=== PATIENT | male | born 1985 | race Caucasian/White ===

== ENCOUNTER 2017-02-26 10:19 | Emergency (ER) | payer SELFPAY ==
[~2017-02-26] VITALS: Wt 78.0 kg
== END 2017-02-26 13:00 | disposition left against medical advice (07) ==
LOC: FTE 10:19
DX: Z53.21 Procedure and treatment not carried out due to patient leaving prior to being seen by health care provider (principal)

== ENCOUNTER 2017-03-06 14:52 | Emergency (ER) | payer SELFPAY ==
[~2017-03-06] VITALS: Ht 175.3 cm; Wt 70.0 kg
[2017-03-06 14:55] VITALS: Ht 175.3 cm; Wt 70.0 kg
--- NOTE | 2017-03-06 15:42 | ERD ---
ER Documentation Chief Complaint Date/Time DATE: 03/06/17 TIME: 15:40 Chief Complaint back px,reports thc use, req'd sw d/t lost hm address, denies si/dto HPI Patient is a 31-year-old male presents with back pain. He came in to see social security specialist because he had lost his home address. The patient was going to come in to the emergency department and be seen but then decided to leave. I went out to the waiting room to see him and said traci and asked him if he would like to be seen at this time and he said no. He decided to elope from the emergency department at that time. ROS All systems reviewed and are negative except as per history of present illness. PMhx/Soc Medical and Surgical Hx: Unable to obtain FmHx Unable to obtain Physical Exam Vitals Vital Signs Date Time Temp Pulse Resp B/P Pulse Ox O2 Delivery O2 Flow Rate FiO2 03/06/17 14:55 98.5 89 18 110/59 97 Physical Exam Const: No acute distress Neur: Awake and alert, walking without difficulty with a normal gait Procedures/MDM Patient is a 31-year-old male who presents with back pain and wanted to see a social security specialist. After seeing him in the waiting room the patient decided to elope did not want to be seen any longer. He does not appear to have any signs of serious back pain causing any ambulatory dysfunction. At this point I doubt epidural abscess, epidural hematoma, or cauda equina syndrome. The patient went to follow-up with a primary doctor. He can return for any worsening symptoms. He did elope prior to receiving a full evaluation. Departure Diagnosis: Primary Impression: Back pain Back pain location: low back pain Chronicity: acute Back pain laterality: unspecified Sciatica presence: unspecified whether sciatica present Qualified Code: M54.5 - Acute low back pain, unspecified back pain laterality, with sciatica presence unspecified Condition: Fair Patient Instructions: Depression Referrals: [facility] YOU HAVE RECEIVED A MEDICAL SCREENING EXAM AND THE RESULTS INDICATE THAT YOU DO NOT HAVE A CONDITION THAT REQUIRES URGENT TREATMENT IN THE EMERGENCY DEPARTMENT. FURTHER EVALUATION AND TREATMENT OF YOUR CONDITION CAN WAIT UNTIL YOU ARE SEEN IN YOUR DOCTORS OFFICE WITHIN THE NEXT 1-2 DAYS. IT IS YOUR RESPONSIBILITY TO MAKE AN APPOINTMENT FOR FOLOW-UP CARE. IF YOU HAVE A PRIMARY DOCTOR --you should call your primary doctor and schedule an appointment IF YOU DO NOT HAVE A PRIMARY DOCTOR YOU CAN CALL OUR PHYSICIAN REFERRAL HOTLINE AT IF YOU CAN NOT AFFORD TO SEE A PHYSICIAN YOU CAN CHOSE FROM THE FOLLOWING [facility] [address] [facility]. [facility] [address] [facility] [address] [facility] [facility] [address] [facility] [address] [facility]. [facility] [address] [facility]. [facility] [address] Additional Instructions: Call your primary care doctor TOMORROW for an appointment during the next 1-2 days.See the doctor sooner or return here if your condition worsens before your appointment time. ANEUDY CORREIA MD Mar 06, 2017 15:42
== END 2017-03-06 17:32 | disposition left against medical advice (07) ==
LOC: E/R 14:52
DX: M54.5 Low back pain (principal)
CPT/HCPCS: 99282

== ENCOUNTER 2017-11-06 18:38 | Emergency (ER) | END 2017-11-06 21:08 | disposition left against medical advice (07) ==